=== PATIENT | male | born 1955 | race Hispanic/Latino ===

== ENCOUNTER 2020-05-20 12:11 | Emergency (ER) | payer MEDICARE, OTHER ==
[~2020-05-20 12:11] MED LIST: FINA5TAB41 PO; METF-445 PO; OXYB10TA30 PO; PRAV20TA4 PO; TAMS0.4C32 PO; TOPI100T37 PO; TRAM50TA4 PO
[2020-05-20 13:25] LABS: BASOPHILS % (AUTO) 1.1 % (0.0-5.0); EOSINOPHILS % (AUTO) 3.8 % (0.0-8.0); MEAN CORPUSCULAR HEMOGLOBIN 29.2 pg (27.0-33.0); MEAN CORPUSCULAR HGB CONC 34.5 g/dL (32.0-36.0); MEAN CORPUSCULAR VOLUME 84.7 fL (79-99); NEUTROPHILS % (AUTO) 50.7 % (40.0-77.0); PLATELET COUNT (AUTO) 134 K/uL (130-400); RED BLOOD CELL COUNT(AUTO) 4.96 MIL/uL (4.50-6.20); RED CELL DISTRIBUTION WIDTH 13.8 % (11.0-15.5); WHITE BLOOD COUNT (AUTO) 5.3 K/uL (4.8-10.8)
[2020-05-20 13:28] LABS: CREATININE 0.9 mg/dL (0.5-1.5)
[2020-05-20 13:32] LABS: ALBUMIN 3.8 g/dL (3.5-5.0); BILIRUBIN,TOTAL 1.2 mg/dL (0.2-1.0); TOTAL PROTEIN, SERUM 6.6 g/dL (6.0-8.3)
[2020-05-20] MEDS ORDERED: SODIUM CHLORIDE 0.9% 1000ML 1,000 ML IV ONE (13:55)
[2020-05-20] MEDS ORDERED: KETOROLAC TROMETHAMINE 30MG/ML ONE (13:56)
[2020-05-20 16:03] LABS: APPEARANCE,URINE Clear (CLEAR); BILIRUBIN,URINE Negative (NEGATIVE); COLOR,URINE Yellow (YELLOW); GLUCOSE, URINE (UA) Negative (NEGATIVE); KETONES,URINE Negative (NEGATIVE); LEUKOCYTE ESTERASE ,URINE Negative (NEGATIVE); NITRATE,URINE Negative (NEGATIVE); OCCULT BLOOD,URINE Negative (NEGATIVE); PH,URINE 5.5 (5.0-8.0); PROTEIN,URINE Negative (NEGATIVE); UROBILINOGEN,URINE 0.2 mg/dL (0.2-1.0)
== END 2020-05-20 16:46 | disposition home or self-care (01) ==
LOC: EDH 12:11
DX: N20.0 Calculus of kidney (principal); I10 Essential (primary) hypertension; E11.9 Type 2 diabetes mellitus without complications; E78.5 Hyperlipidemia, unspecified
CPT/HCPCS: 36415; 74176; 80053; 81003; 85025; 96361; 96374; 99284; J1885; J7030

== ENCOUNTER → 2021-10-01 | Outpatient (CLI) | payer MEDICARE ==
[~2021-10-01] VITALS: Ht 162.6 cm; Wt 76.0 kg
[~2021-10-01] MED LIST changes: +ACYC400T20 PO; +ASPI-1012 PO; +CEFTRIAXONE 1G VIAL IVP SCH; +LENA10CA PO; +LOSA25TA41 PO
[2021-10-01 14:47] LABS: BASOPHILS % (AUTO) 0.8 % (0.0-5.0); HEMATOCRIT 42.2 % (42-54); LYMPHOCYTES % (AUTO) 42.6 % (21.0-51.0); MEAN CORPUSCULAR HEMOGLOBIN 30.5 pg (27.0-33.0); MEAN CORPUSCULAR HGB CONC 34.6 g/dL (32.0-36.0); MEAN CORPUSCULAR VOLUME 88.1 fL (79-99); MONOCYTES % (AUTO) 14.5 % (3.0-13.0); NEUTROPHILS % (AUTO) 38.7 % (40.0-77.0); PLATELET COUNT (AUTO) 153 K/uL (130-400); RED BLOOD CELL COUNT(AUTO) 4.79 MIL/uL (4.50-6.20); RED CELL DISTRIBUTION WIDTH 13.2 % (11.0-15.5)
[2021-10-01 15:03] LABS: CREATININE 0.9 mg/dL (0.5-1.5)
[2021-10-02 11:52] VITALS: BP 146/70
== END | disposition home or self-care (01) ==
LOC: DAH 10:00 → EDSTATUS 10-15 12:00
PROVIDERS: ATTEND Urology
DX: Z01.818 Encounter for other preprocedural examination (principal); N20.0 Calculus of kidney; I49.1 Atrial premature depolarization; E11.9 Type 2 diabetes mellitus without complications; K21.9 Gastro-esophageal reflux disease without esophagitis; Z79.01 Long term (current) use of anticoagulants; Z79.899 Other long term (current) drug therapy; Z79.84 Long term (current) use of oral hypoglycemic drugs
CPT/HCPCS: 36415; 80048; 85025; 87426; 93005

== ENCOUNTER 2021-10-17 05:30 | Day surgery (SDC) | payer MEDICARE ==
[2021-10-15 14:26] LABS: EOSINOPHILS % (AUTO) 2.1 % (0.0-8.0); HEMATOCRIT 41.4 % (42-54); LYMPHOCYTES % (AUTO) 55.2 % (21.0-51.0); MEAN CORPUSCULAR HGB CONC 34.8 g/dL (32.0-36.0); MONOCYTES % (AUTO) 9.6 % (3.0-13.0); NEUTROPHILS % (AUTO) 31.9 % (40.0-77.0); PLATELET COUNT (AUTO) 150 K/uL (130-400); RED BLOOD CELL COUNT(AUTO) 4.65 MIL/uL (4.50-6.20); RED CELL DISTRIBUTION WIDTH 13.4 % (11.0-15.5); WHITE BLOOD COUNT (AUTO) 4.8 K/uL (4.8-10.8)
[2021-10-15 14:33] LABS: POTASSIUM 4.5 mmol/L (3.5-5.1)
[2021-10-16 09:36] VITALS: BP 147/75
[~2021-10-17] VITALS: Ht 162.6 cm; Wt 75.9 kg
[2021-10-17] VITALS (17 sets, daily range): BP systolic 110–148; BP diastolic 52–85
[~2021-10-17 05:30] MED LIST changes: -CEFTRIAXONE 1G VIAL IVP SCH; -METF-445 PO; -OXYB10TA30 PO; -TOPI100T37 PO; -TRAM50TA4 PO
[2021-10-17] MEDS ORDERED: 0.9%NACL 1000ML 1,000 ML IV ONE (05:38)
[2021-10-17] MEDS: CEFTRIAXONE 1G VIAL IVP SCH ×2 (05:46→07:00)
[2021-10-17] MEDS ORDERED: ONDANSETRON 4MG INJ ONE (06:05)
[2021-10-17] MEDS ORDERED: PROPOFOL 10 MG/ML 20ML VIAL IV ONE (06:05)
[2021-10-17] MEDS ORDERED: MIDAZOLAM HCL 1 MG/ML 2ML VIAL ONE (06:05)
[2021-10-17] MEDS ORDERED: FENTANYL CITRATE PF 50 MCG/1 ML 2ML VIAL ONE ×2 (06:06→07:18)
[2021-10-17] MEDS ORDERED: ROCURONIUM 10MG/1ML SYR 10 MG/ML ML ONE (06:06)
[2021-10-17] MEDS ORDERED: LIDOCAINE HCL 1% 20 ML VIAL ONE (06:27)
[2021-10-17] MEDS ORDERED: EPHEDRINE SULFATE 50 MG/ML AMPULE ONE (07:14)
[2021-10-17] MEDS ORDERED: NEOSTIGMINE 5MG/5ML SYR IV ONE (07:32)
[2021-10-17] MEDS ORDERED: GLYCOPYRROLATE 1 MG/5 ML SYRINGE ONE (07:32)
[2021-10-17] MEDS ORDERED: MEPERIDINE-PF 25 MG/ML SYG ONE (07:34)
== END 2021-10-17 09:40 | disposition home or self-care (01) ==
LOC: DAH 05:30
PROVIDERS: ATTEND Urology
DX: N20.0 Calculus of kidney (principal); I10 Essential (primary) hypertension; I45.10 Unspecified right bundle-branch block; E11.9 Type 2 diabetes mellitus without complications; K21.9 Gastro-esophageal reflux disease without esophagitis; Z79.84 Long term (current) use of oral hypoglycemic drugs; Z79.82 Long term (current) use of aspirin; Z79.899 Other long term (current) drug therapy; Z85.79 Personal history of other malignant neoplasms of lymphoid, hematopoietic and related tissues
CPT/HCPCS: 80048; 85025; 87426; 36415; 93005; 50590; 82948 ×2; A6260; J7120; J3010 ×2; J3490 ×2; J2710; J7030; J0696; J2250; J2704; J2405; J2175; A4215; A4223; A4222; A4221; A4663; A4600